=== PATIENT | female | born 1975 | race Caucasian/White ===

== ENCOUNTER 2024-06-04 11:27 | Emergency (ER) | payer OTHER, BC ==
[~2024-06-04] VITALS: Ht 180.3 cm; Wt 95.2 kg
[~2024-06-04 11:27] MED LIST: ACETAMINOPHEN500 MG; Cyclobenzaprine5 MG; HYDACE10B; IBU800 M1 PO; Ibuprofen Ib200 MG; META800; Norethindrone Ac5 MG PO; OXYCODONE-ACET1 EAC3 PO; PSEU120ER PO; Phenergan25 M1; Suphedrine30 MG; ZEBUTAL 50-3251 EAC1
[2024-06-04 11:35] VITALS: BP 141/102
== END 2024-06-04 11:39 | disposition left against medical advice (07) ==
LOC: ER 11:27
DX: S89.91XA Unspecified injury of right lower leg, initial encounter (principal); Z53.29 Procedure and treatment not carried out because of patient's decision for other reasons
CPT/HCPCS: 99282

== ENCOUNTER 2024-09-07 07:40 | Day surgery (SDC) | payer BC ==
[~2024-09-07] VITALS: Ht 180.3 cm; Wt 97.3 kg
[~2024-09-07 07:40] MED LIST changes: +Lactated Ringer's 1,000 ML IV ONE
[2024-09-07] MEDS ORDERED: propofoL 20 ML IV ONE (08:02)
[2024-09-07] MEDS ORDERED: FentaNYL Citrate 50 MCG/ML 2 ML Injection ONE ×2 (08:02→10:42)
[2024-09-07] MEDS ORDERED: Dexamethasone Sod Phos 10 MG/ML 1ML VIAL ONE (08:05)
[2024-09-07] MEDS ORDERED: Ketorolac Tromethamine 30mg Vial ONE (08:05)
[2024-09-07] MEDS ORDERED: Ondansetron HCl 2 MG / ML 2ML Vial ONE ×2 (08:05→11:05)
[2024-09-07] MEDS ORDERED: Lactated Ringer's 1,000 ML IV ONE (08:22)
[2024-09-07] MEDS ORDERED: CeFAZolin Sodium 2,000 MG VIAL ONE (08:34)
[2024-09-07] MEDS ORDERED: Midazolam HCl 1MG / ML 2ML Vial ONE (08:56)
[2024-09-07] MEDS ORDERED: Lidocaine 2%-Epineph 1:200000 20 ML SDV INJ ONE (09:43)
[2024-09-07] MEDS ORDERED: EPINEPhrine HCl 1 MG/ML 1ML Amp XX ONE (09:43)
[2024-09-07] MEDS ORDERED: HYDROmorphone HCl/Pf 1MG SYR ONE (10:42)
[2024-09-07 10:50] VITALS: BP 130/93
--- NOTE | 2024-09-07 10:52 | NUR ---
09/07/24 1052 Kayleigh Dash PT STATED THAT HER PAIN LEVEL WAS A 8/10 TO L KNEE. PT STATED THAT SHE WOULD BE AT AN ACEPTABLE LEVEL IF SHE DROPPED DOWN TO A 5-6/10, THAT IS OUR GOAL. PT DENIED ANY NAUSEA. WILL CONTACT PT'S TO LET HIM KNOW SHE IS DONE WITH HER PROCEDURE. BERENICE, [place].
[2024-09-07] MEDS ORDERED: OxyCODONE HCL 5 MG TAB ONE (11:13)
== END 2024-09-07 11:47 | disposition home or self-care (01) ==
LOC: ORSCSDS 07:40
PROVIDERS: Orthopaedic Surgery
PROC: 0SBD4ZZ Excision of Left Knee Joint, Percutaneous Endoscopic Approach (ICD-10-PCS; principal; 2024-09-07 09:15)
DX: S83.242A Other tear of medial meniscus, current injury, left knee, initial encounter (principal)
CPT/HCPCS: A9270; J0171; J0690; J1100; J1171; J1885; J2250; J2405; J2704; J3010; J7120

== ENCOUNTER 2025-09-27 06:23 | Emergency (ER) | payer BC ==
[~2025-09-27] VITALS: Ht 180.3 cm; Wt 90.7 kg
[~2025-09-27 06:23] MED LIST changes: -Lactated Ringer's 1,000 ML IV ONE
[2025-09-27 08:21] LABS: Source, Urine Clean Catch
[2025-09-27 08:22] LABS: BASOPHILS ABSOLUTE AUTO 0.04 K/mm3 (0.00-0.23); BASOPHILS PERCENT AUTO 0 % (0-2); EOSINOPHILS ABSOLUTE AUTO 0.07 K/mm3 (0.00-0.68); EOSINOPHILS PERCENT AUTO 1 % (0-6); Hematocrit 40.5 % (33.0-51.0); Hemoglobin 13.9 g/dL (11.5-16.0); IMMATURE GRAN ABSOLUTE AUTO 0.04 K/mm3 (0.00-0.10); IMMATURE GRAN PERCENT AUTO 0 % (0-1); LYMPHOCYTES ABSOLUTE AUTO 2.14 K/mm3 (0.84-5.20); LYMPHOCYTES PERCENT AUTO 20 % (21-46); MONOCYTES ABSOLUTE AUTO 0.80 K/mm3 (0.16-1.47); MONOCYTES PERCENT AUTO 7 % (4-13); Mean Corpuscular HGB Conc 34.3 g/dL (31.5-36.5); Mean Corpuscular Volume 94 fL (80-100); NEUTROPHILS ABSOLUTE AUTO 7.68 K/mm3 (1.96-9.15); NEUTROPHILS PERCENT AUTO 71 % (41-73); NRBC ABSOLUTE 0.00 K/mm3 (0.00-0.02); NRBC Auto 0.0 /100 WBC (0.0-0.2); Platelet Count 215 K/mm3 (150-400); RDW Coefficient Variation 11.9 % (11.7-14.2); RDW Standard Deviation 41.5 fL (35.1-46.3)
[2025-09-27 08:24] LABS: Bilirubin, Urine Neg (Neg); Color, Urine Yellow (P-Yellow); Glucose Qualitative, Urine Neg (Neg); Ketones, Urine 1+ (Neg); Leukocyte Esterase, Urine Neg (Neg); Protein, Urine 1+ (Neg); Specific Gravity, Urine 1.010 (1.003-1.022); Urobilinogen, Urine NORM (Normal)
[2025-09-27 08:35] LABS: Red Blood Cells, Urine 0-2 /hpf (0-2); White Blood Cells, Urine 0-2 /hpf (0-5)
[2025-09-27 08:41] LABS: Alanine Aminotransfer (ALT/SGP 33.0 U/L (12-78); Albumin, Blood 3.8 g/dL (3.4-5.0); Albumin/Globulin Ratio 1.0 (0.8-1.8); Anion Gap 11.0 mmol/L (3-11); Aspartate Aminotrans (AST/SGOT 20.0 U/L (12-37); Bilirubin, Total 1.2 mg/dL (0.1-1.0); Blood Urea Nitrogen 8.0 mg/dL (8-24); CO2, Blood 26.0 mmol/L (21-32); Calcium, Blood 9.1 mg/dL (8.5-10.1); Chloride, Blood 106.0 mmol/L (98-108); Creatinine, Blood 0.67 mg/dL (0.40-1.00); Globulin, Blood 3.9 g/dL (2.2-4.0); Glucose, Blood 84.0 mg/dL (70-99); Potassium, Blood 4.1 mmol/L (3.5-5.5); Sodium, Blood 139.0 mmol/L (136-145); Total Protein, Blood 7.7 g/dL (6.4-8.2)
[2025-09-27 10:17] VITALS: BP 136/88
== END 2025-09-27 10:17 | disposition home or self-care (01) ==
LOC: ER 06:23
PROVIDERS: Emergency Medicine
DX: R10.20 Pelvic and perineal pain unspecified side (principal); N83.202 Unspecified ovarian cyst, left side; N83.201 Unspecified ovarian cyst, right side; Z88.1 Allergy status to other antibiotic agents; Z79.899 Other long term (current) drug therapy
CPT/HCPCS: 76830; 76856; 80053; 81001; 81025; 85025; 99284-25